=== PATIENT | male | born 1970 | race African-American/Black ===

== ENCOUNTER 2022-04-05 07:31 | Day surgery (SDC) | payer OTHER ==
[~2022-04-05] VITALS: Ht 180.3 cm; Wt 107.8 kg
[2022-04-05] MEDS ORDERED: NORVASC 10MG10 MG PO (07:54)
[2022-04-05] MEDS ORDERED: NORCO 325 MG-51 TAB PO (11:47)
[2022-04-05 12:30] VITALS: BP 151/79; PULSE 97; TEMP 97.6
--- NOTE | 2022-04-05 12:30 | NUR ---
The patient arrived back to [facility] from the recovery room at this time. The patient appears alert and oriented and reports minimal pain in his abdomen at this time. Post operative vital signs were started at this time. The patient has three lap sites to his abdomen that are covered with surgical glue and appear without redness or edema. The patient's friend, Cosmo, is at the patient's bedside. Call light is within reach. The patient has some water from the recovery room that he has been sipping on and appears to be tolerating well.
[2022-04-05 12:36] VITALS: TEMP 97.6
[2022-04-05 12:45] VITALS: BP 155/89; PULSE 90
--- NOTE | 2022-04-05 12:45 | NUR ---
The patient continues to report minimal pain. Vital signs appear stable to baseline. The patient agrees to try some jello and apple juice. Denies any further needs at this time.
[2022-04-05 13:00] VITALS: BP 133/81; PULSE 93
--- NOTE | 2022-04-05 13:00 | NUR ---
The patient appears to be tolerating the food and drink well. The patient requests more apple juice at this time. Vital signs appear stable. Call light is within reach.
[2022-04-05 13:15] VITALS: BP 130/77; PULSE 96
--- NOTE | 2022-04-05 13:20 | NUR ---
The patient requests some ice water at this time. He states "after this I should be good for the bathroom". Vital signs appear stable. Cosmo remains at his bedside. Denies any further needs at this time.
[2022-04-05 13:45] VITALS: BP 142/78; PULSE 87
--- NOTE | 2022-04-05 13:45 | NUR ---
The patient was given a PRN dose of [place] one tab for continued pain relief. The patient was assisted to the bathroom with the assistance of one nurse and appeared to tolerate the activity well. The patient voided without difficulty and voices a desire to be discharged home. The nurse instructed the patient to get dressed and notify the staff when he is ready to review his discharge paperwork.
--- NOTE | 2022-04-05 14:00 | NUR ---
Discharge instructions were reviewed with the patient and his friend at this time. They both verbalized and questions were answered at this time. The patient's IV to his left hand was removed and a pressure dressing was applied to the site. The patient is dressed ready to be escorted out.
--- NOTE | 2022-04-05 14:10 | NUR ---
The patient was escorted out via wheelchair to a private vehicle by BOBBI Hong. The patient's belongings and discharge paperwork were sent with him. The patient's friend, Cosmo, is present to drive him home.
== END 2022-04-05 14:10 | disposition home or self-care (01) ==
LOC: SDCO 07:31
DX: K40.91 Unilateral inguinal hernia, without obstruction or gangrene, recurrent (principal)
CPT/HCPCS: C1781; J0690; J1100; J1170; J1885; J2405; J2704; J3010; J7120